=== PATIENT | male | born 1950 | race Caucasian/White ===

== ENCOUNTER 2018-03-25 10:15 | Outpatient (RCR) | payer MEDICARE, OTHER, SELFPAY ==
--- NOTE | 2018-03-11 16:21 | PT.OTN ---
Addendum entered and electronically signed by Yenni Horne, PT 03/11/18 17:46: Transition note: On March 08, 2018 our therapy services consisting of Speech, Occupational, and Physical Therapy transitioned from the [employer] electronic documentation system to a new [employer] electronic documentation system.?? All documentation prior to March 08 can be found under [employer] saved data. From March 08 forward all medical record documentation will be in [employer]. Original Note: Current Diagnoses Difficulty in walking, not elsewhere classified (03/11/18) Weakness (03/11/18) Multiple fractures of ribs, left side, subsequent encounter for fracture with routine healing (03/11/18) Minimally displaced Zone II fracture of sacrum, subsequent encounter for fracture with routine healing (03/11/18) Multiple fractures of pelvis with stable disruption of pelvic ring, subsequent encounter for fracture with routine healing (03/11/18) Physical Therapy Treatment Note PT-OP-A Visit Information Start: 03/11/18 15:57 Freq: Status: Active Protocol: Activity Type Activity Date Activity User E-Sign Co-Sign Detail Recorded Client Recorded Date Recorded By Document 03/11/18 16:04 [facility] [email or web address] 03/11/18 16:21 [facility] 03/11/18 16:04 Out-Patient Physical Therapy Visit Information [Visit Information] -Visit Type Treatment Note -Visit Start Time 11:45 -Visit Stop Time 12:30 -Total Visit Minutes 45 -Visit Number 6/10 -Number of DRILL PRESS OPERATOR Visits 2 PT-OP-C Subjective Start: 03/11/18 16:03 Freq: Status: Active Protocol: Activity Type Activity Date Activity User E-Sign Co-Sign Detail Recorded Client Recorded Date Recorded By Document 03/11/18 16:04 [facility] [email or web address] 03/11/18 16:21 [facility] 03/11/18 16:04 OP-PT Subjective [Patient Comments] -Patient Comments Pt. reports he' s walking around the house without assisitive device, using a cane outdoors, using a FWW when comes to pool. -Patient Reported Progress Improving PT-OP-S Aquatic Treatment Start: 03/11/18 16:01 Freq: Status: Active Protocol: Activity Type Activity Date Activity User E-Sign Co-Sign Detail Recorded Client Recorded Date Recorded By Document 03/11/18 16:04 TMS [email or web address] 03/11/18 16:21 TMS 03/11/18 16:04 Aquatics Treatment [Pool Entry/Exit] -Pool Entry/Exit Method Stairs -Assistance Independent [Water Walking] Forwards -Water Level Waist Level -Walking Equipment Resistance Fins -Level of Assistance Independent [Lower Extremity Exercises] 6 -Details Step ups from various level steps; 4 inch, 6 inch, 8 inch -Body Position Standing -Water Level Waist Level -Equipment Resistance Fins 5 -Details Heel/toe -Body Position Standing -Water Level Waist Level -Equipment Resistance Fins -Reps/Duration 15 4 -Details Squats -Body Position Standing -Water Level Waist Level -Equipment Resistance Fins -Reps/Duration 15 3 -Details L.E. circles -Body Position Standing -Water Level Waist Level -Equipment Resistance Fins -Reps/Duration 15 2 -Details Hip Abduction -Body Position Standing -Water Level Waist Level -Equipment Resistance Fins -Reps/Duration 15 1 -Details Hip flexion/ extension -Body Position Standing -Water Level Waist Level -Equipment Resistance Fins -Reps/Duration 15 [Lower Extremity Stretches] 1 -Details Hamstring/IT/AB -Body Position Standing -Water Level Waist Level -Equipment Small Noodle -Reps/Duration x2, 30 seconds [[place] Activities] -[place] Activities Bicycle Cross Country Hip Abduction/ Adduction Sit Kicks -Equipment Belt -Duration 4 sets of each, 30;30 -Comments Tethered PT-OP-T Assessment and Plan Start: 03/11/18 16:01 Freq: Status: Active Protocol: Activity Type Activity Date Activity User E-Sign Co-Sign Detail Recorded Client Recorded Date Recorded By Document 03/11/18 16:04 [facility] [email or web address] 03/11/18 16:21 [facility] 03/11/18 16:04 Physical Therapy Assessment [Assessment Summary] -Assessment Pt. needed cues to keep motion small with hip AB/AD to keep it tolerable. Tolerating increased weight bearing well without increased pain. Physical Therapy Plan [Frequency and Duration] -Frequency of Treatment 2x/Week -Duration of Treatment 3 months from -Plan of Care Start Date 01/17/18 -Plan of Care End Date 04/16/18
--- NOTE | 2018-03-14 16:59 | PT.OTN ---
Current Diagnoses Difficulty in walking, not elsewhere classified (03/14/18) Weakness (03/14/18) Multiple fractures of ribs, left side, subsequent encounter for fracture with routine healing (03/14/18) Minimally displaced Zone II fracture of sacrum, subsequent encounter for fracture with routine healing (03/14/18) Multiple fractures of pelvis with stable disruption of pelvic ring, subsequent encounter for fracture with routine healing (03/14/18) Physical Therapy Treatment Note PT-OP-A Visit Information Start: 03/11/18 15:57 Freq: Status: Active Protocol: Activity Type Activity Date Activity User E-Sign Co-Sign Detail Recorded Client Recorded Date Recorded By Document 03/14/18 16:[address] [facility] [id number] 03/14/18 16:[address] [facility] 03/14/18 16:47 Out-Patient Physical Therapy Visit Information [Visit Information] -Visit Type Treatment Note -Visit Start Time 11:45 -Visit Stop Time 12:30 -Total Visit Minutes 45 -Visit Number 7/10 -Number of DIE ENGRAVER Visits 0 PT-OP-C Subjective Start: 03/11/18 16:03 Freq: Status: Active Protocol: Activity Type Activity Date Activity User E-Sign Co-Sign Detail Recorded Client Recorded Date Recorded By Document 03/14/18 16:[address] [facility] [id number] 03/14/18 16:[address] [facility] 03/14/18 16:47 OP-PT Subjective [Patient Comments] -Patient Comments States he feels like he is pretty much 100 % weight- bearing though moving carefully. Using cane only . Minimal uneven ground ambulation so far. States he feels after finished with aquatic therapy will continue land-based exercises independently including riding his recumbant bike. Worst pain bilateral ischial tuberosities; ache. -Patient Reported Progress Improving PT-OP-S Aquatic Treatment Start: 03/11/18 16:01 Freq: Status: Active Protocol: Activity Type Activity Date Activity User E-Sign Co-Sign Detail Recorded Client Recorded Date Recorded By Document 03/14/18 16:[address] [facility] [id number] 03/14/18 16:[address] [facility] 03/14/18 16:47 Aquatics Treatment [Pool Entry/Exit] -Pool Entry/Exit Method Stairs -Assistance Independent [Lower Extremity Exercises] 6 -Details Step ups from various level steps; 4 inch, 6 inch, 8 inch -Body Position Standing -Water Level Waist Level -Equipment Resistance Fins 3 -Details L.E. circumduction -Body Position Standing -Water Level Waist Level -Equipment Resistance Fins -Reps/Duration 15 1 -Details Hip flexion/ extension -Body Position Standing -Water Level Waist Level -Equipment Resistance Fins -Reps/Duration 15 [Lower Extremity Stretches] 1 -Details Hamstring/IT/AB -Body Position Standing -Water Level Waist Level -Equipment Small Noodle -Reps/Duration x2, 30 seconds [Upper Extremity Exercises] 1 -Details volleyball with plastic ball for dynamic activity, weight-shifts -Body Position Standing -Reps/Duration 5' [Spinal Exercises] 1 -Details plank -Body Position Supine -Water Level Chest Level -Equipment long barbell -Reps/Duration 10x [Swim Strokes] Flutter -Other Equipment Used kickboard, large flotation mat -Laps/Duration 4' PT-OP-T Assessment and Plan Start: 03/11/18 16:01 Freq: Status: Active Protocol: Activity Type Activity Date Activity User E-Sign Co-Sign Detail Recorded Client Recorded Date Recorded By Document 03/14/18 16:[address] [facility] [id number] 03/14/18 16:[address] [facility] 03/14/18 16:47 Physical Therapy Assessment [Assessment Summary] -Assessment Patient has difficulty achieving propulsion prone with kickboard (uses flotation belt as well); will try fins next session. Tolerated progression of activity well today. 100% weight-bearing on land. Physical Therapy Plan [Next Visit Focus/Plan] -Next Visit Plan Continue to progress aquatic exercises, add fins to gentle flutter, try supine flutter.
--- NOTE | 2018-03-18 16:28 | PT.OTN ---
Current Diagnoses Difficulty in walking, not elsewhere classified (03/18/18) Weakness (03/18/18) Multiple fractures of ribs, left side, subsequent encounter for fracture with routine healing (03/18/18) Minimally displaced Zone II fracture of sacrum, subsequent encounter for fracture with routine healing (03/18/18) Multiple fractures of pelvis with stable disruption of pelvic ring, subsequent encounter for fracture with routine healing (03/18/18) Physical Therapy Treatment Note PT-OP-A Visit Information Start: 03/11/18 15:57 Freq: Status: Active Protocol: Document 03/18/18 16:18 TMS (Rec: 03/18/18 16:28 TMS [email or web address]) Out-Patient Physical Therapy Visit Information Visit Information Visit Type Treatment Note Visit Start Time 11:45 Visit Stop Time 12:30 Total Visit Minutes 45 Visit Number 8/ Number of BOILER CONTROL TECHNICIAN Visits 1 PT-OP-C Subjective Start: 03/11/18 16:03 Freq: Status: Active Protocol: Document 03/18/18 16:18 TMS (Rec: 03/18/18 16:28 TMS [email or web address]) OP-PT Subjective Patient Comments Patient Comments Pt. states he started soaking in a hot tub in the evenings, feels more flexible in the mornings now. PT-OP-S Aquatic Treatment Start: 03/11/18 16:01 Freq: Status: Active Protocol: Document 03/18/18 16:18 TMS (Rec: 03/18/18 16:28 TMS [email or web address]) Aquatics Treatment Pool Entry/Exit Pool Entry/Exit Method Stairs Assistance Independent Water Walking Forwards Water Level Waist Level Walking Equipment Resistance Fins Level of Assistance Verbal Cues Lower Extremity Exercises 6 Details Step ups from various level steps; 4 inch, 6 inch, 8 inch Body Position Standing Water Level Waist Level Equipment Resistance Fins Comments Laterally also 5 Details Heel/toe Body Position Standing Water Level Waist Level Equipment Resistance Fins Reps/Duration x15 reps 4 Details Squats Body Position Standing Water Level Waist Level Equipment Resistance Fins Reps/Duration 15 reps 3 Details L.E. circumduction Body Position Standing Water Level Waist Level Equipment Resistance Fins Reps/Duration x15 2 Details Hip Abduction Body Position Standing Water Level Waist Level Equipment Resistance Fins Reps/Duration x15 1 Details Hip flexion/extension Body Position Standing Water Level Waist Level Equipment Resistance Fins Reps/Duration x15 Lower Extremity Stretches 1 Details Hamstring/IT/AB Body Position Standing Water Level Waist Level Equipment Small Noodle Reps/Duration x2, 30 seconds Upper Extremity Exercises 1 Details volleyball with plastic ball for dynamic activity, weight- shifts Body Position Standing Reps/Duration 5' Bang[place] Activities Bang[place] Activities Bicycle Cross Country Hip Abduction/Adduction Sit Kicks Equipment Belt Duration 4 sets of each, 30;30 Comments Tethered PT-OP-T Assessment and Plan Start: 03/11/18 16:01 Freq: Status: Active Protocol: Document 03/18/18 16:18 TMS (Rec: 03/18/18 16:28 [facility] [email or web address]) Physical Therapy Assessment Assessment Summary Assessment Beach ball hitting challenging with pt. feeling like he needed to concentrate on core more. Tolerating increased weight bearing well, states he does get ishial tuberosity pain when over does it. Physical Therapy Plan Frequency and Duration Frequency of Treatment 2x/Week Duration of Treatment 3 months from 01/17/18 Plan of Care Start Date 01/17/18 Plan of Care End Date 04/16/18 Next Visit Focus/Plan Next Visit Plan Continue to progress aquatic exercises, add fins to gentle flutter, try supine flutter.
--- NOTE | 2018-03-21 15:26 | PT.OTN ---
Current Diagnoses Difficulty in walking, not elsewhere classified (03/18/18) Weakness (03/18/18) Multiple fractures of ribs, left side, subsequent encounter for fracture with routine healing (03/18/18) Minimally displaced Zone II fracture of sacrum, subsequent encounter for fracture with routine healing (03/18/18) Multiple fractures of pelvis with stable disruption of pelvic ring, subsequent encounter for fracture with routine healing (03/18/18) Physical Therapy Treatment Note PT-OP-A Visit Information Start: 03/11/18 15:57 Freq: Status: Active Protocol: Document 03/21/18 15:13 TMS (Rec: 03/21/18 15:26 TMS [email or web address]) Out-Patient Physical Therapy Visit Information Visit Information Visit Type Treatment Note Visit Start Time 11:05 Visit Stop Time 11:55 Total Visit Minutes 50 Visit Number 9/ Number of ELECTRIC CRANE OPERATOR Visits 2 PT-OP-C Subjective Start: 03/11/18 16:03 Freq: Status: Active Protocol: Document 03/21/18 15:13 TMS (Rec: 03/21/18 15:26 TMS [email or web address]) OP-PT Subjective Patient Comments Patient Comments No new complaints. OP-PT Pain Assessment Pain Assessment Grid Paper Pain Assessment Grid Completed No Comments Pain Comments Pain rated at 1-2/10 in SI joints. PT-OP-S Aquatic Treatment Start: 03/11/18 16:01 Freq: Status: Active Protocol: Document 03/21/18 15:13 TMS (Rec: 03/21/18 15:26 TMS [email or web address]) Aquatics Treatment Pool Entry/Exit Pool Entry/Exit Method Stairs Assistance Independent Water Walking Forwards Water Level Waist Level Lower Extremity Exercises 6 Details Step ups from various level steps; 4 inch, 6 inch, 8 inch Body Position Standing Water Level Waist Level Comments Backwards, also jumping up 10 inch box (with body submerged) . Lower Extremity Stretches 1 Details Hamstring/IT/AB Body Position Standing Water Level Waist Level Equipment Small Noodle Reps/Duration x2, 30 seconds Balance 1 Body Position Standing Water Level Waist Level Pl[place] Activities Pl[place] Activities Bicycle Cross Country Hip Abduction/Adduction Sit Kicks Equipment Belt Duration 4 sets of each, 30;30 Comments Tethered Swim Strokes Flutter Equipment Fins Other Equipment Used kickboard Laps/Duration 10 minutes Comments Supine and prone PT-OP-T Assessment and Plan Start: 03/11/18 16:01 Freq: Status: Active Protocol: Document 03/21/18 15:13 TMS (Rec: 03/21/18 15:26 TMS [email or web address]) Physical Therapy Assessment Assessment Summary Assessment Pt. tolerated deep water AB/AD as long as he maintained a slower pace. Tolerated fluttering with fins well. Physical Therapy Plan Frequency and Duration Frequency of Treatment 2x/Week Duration of Treatment 3 months from 01/17/18 Plan of Care Start Date 01/17/18 Plan of Care End Date 04/16/18 Next Visit Focus/Plan Next Visit Plan Continue with plan of care.
--- NOTE | 2018-03-29 13:20 | PT.OTN ---
Current Diagnoses Difficulty in walking, not elsewhere classified (03/25/18) Weakness (03/25/18) Multiple fractures of ribs, left side, subsequent encounter for fracture with routine healing (03/25/18) Minimally displaced Zone II fracture of sacrum, subsequent encounter for fracture with routine healing (03/25/18) Multiple fractures of pelvis with stable disruption of pelvic ring, subsequent encounter for fracture with routine healing (03/25/18) Physical Therapy Treatment Note PT-OP-A Visit Information Start: 03/11/18 15:57 Freq: Status: Active Protocol: Document 03/25/18 11:00 SAK (Rec: 03/29/18 13:20 [facility] [id number]) Out-Patient Physical Therapy Visit Information Visit Information Visit Type Treatment Note Visit Start Time 11:00 Visit Stop Time 11:45 Total Visit Minutes 45 Visit Number 08/17 Number of DRY CHARGE PROCESS ATTENDANT Visits 2 PT-OP-C Subjective Start: 03/11/18 16:03 Freq: Status: Active Protocol: Document 03/25/18 11:00 SAK (Rec: 03/29/18 13:20 [facility] [id number]) OP-PT Subjective Patient Comments Patient Comments pain in ischial tuberosity region persists evelyn 1-2/10, occasionally 3/10 after walking. Full weight-bearing now, no device indoors, cane outdoors Patient Reported Progress Improving PT-OP-S Aquatic Treatment Start: 03/11/18 16:01 Freq: Status: Active Protocol: Document 03/25/18 11:00 SAK (Rec: 03/29/18 13:20 [facility] [id number]) Aquatics Treatment Pool Entry/Exit Pool Entry/Exit Method Stairs Assistance Independent Water Walking Forwards Water Level Waist Level Walking Equipment Resistance Fins Level of Assistance Verbal Cues Lower Extremity Exercises 3 Details L.E. circumduction Body Position Standing Water Level Waist Level Equipment Resistance Fins Reps/Duration x15 Lower Extremity Stretches 2 Details piriformis Body Position squat Water Level Chest Level Equipment wall Reps/Duration 2 1 Details Hamstring/IT/AB Body Position Standing Water Level Waist Level Equipment Small Noodle Reps/Duration x2, 30 seconds [place] Activities [place] Activities Bicycle Cross [place] Hip Abduction/Adduction Sit Kicks Equipment Belt Duration 4 sets of each, 30;30 Comments Tethered Swim Strokes Flutter Equipment Noodle Other Equipment Used kickboard Laps/Duration 10 minutes Comments Supine and prone PT-OP-T Assessment and Plan Start: 03/11/18 16:01 Freq: Status: Active Protocol: Document 03/25/18 11:00 JAYNE (Rec: 03/29/18 13:20 [facility] [id number]) Physical Therapy Assessment Goals Eight Impairment HEP Oil Dispatcher Goal (LTG) Independent with HEP LTG Duration 3 wks Seven Impairment LEFS Oil Dispatcher Goal (LTG) Improve LEFS score to 75% LTG Duration 3 wks Six Impairment strength Long-Term Goal (LTG) Improve LE strength to 5/5 Five Impairment Flexibility Long-Term Goal (LTG) LE flexibility WNL LTG Duration 2 wks Four Impairment soft tissue mobility Oil Dispatcher Goal (LTG) Improve scar mobility to WNL LTG Duration 3 wks Three Impairment Stair gait Long-Term Goal (LTG) Patien able to ascend and descend stairs with reciprocal pattern without limp LTG Duration 3 wks Two Impairment Gait Long-Term Goal (LTG) Patient able to ambaulate on level and uneven surfaces without device and without limp or compensatory patterns LTG Duration 3 wks One Impairment activity tolerance Oil Dispatcher Goal (LTG) Patient able to return to all prior activities with minimal to no symptoms LTG Duration 3 wks Progress Towards Goals Progress Towards Goals Progressing Toward Goals Progress Comments Overall good progress with some persistent pain ischial tuberosity region; piriformis stretch added today which appeared helpful. Patient remains highly motivated and is following directions to gradually resume usual activities. Assessment Summary Assessment Anticipating discharge from PT in approximately 2 wks, with patient continueing aquatic ex and HEP independently. Sees physician this week. Physical Therapy Plan Frequency and Duration Frequency of Treatment 2x/Week Duration of Treatment 3 months from 01/17/18 Plan of Care Start Date 01/17/18 Plan of Care End Date 04/16/18 Next Visit Focus/Plan Next Visit Plan Further progression of aquatic therapy exercises for strengthening, balance, flexibility, and ROM. Emphasis on piriformis stretching. Please Sign and Return: I have reviewed this Plan of Care and certify that the skilled therapy services above are required to meet the patient???s needs. Physician Signature Date Printed Name and Credentials Clinical Instructor Signature Printed Name and Credentials
--- NOTE | 2018-05-31 13:55 | PT.OPDS ---
Current Diagnoses Difficulty in walking, not elsewhere classified (03/25/18) Weakness (03/25/18) Multiple fractures of ribs, left side, subsequent encounter for fracture with routine healing (03/25/18) Minimally displaced Zone II fracture of sacrum, subsequent encounter for fracture with routine healing (03/25/18) Multiple fractures of pelvis with stable disruption of pelvic ring, subsequent encounter for fracture with routine healing (03/25/18) Provider Visit Care Team Role Provider Type Angelo Ramires MD Primary Care Provider Physician Specialty: Family Practice Address: [address] [place] [address], [facility] Email: [email or web address] Other Providers Specialty: Address: Phone: Fax: Email: Simba Hoang MD Attending Provider Non-Staff Specialty: Orthopedic Surgery Address: [address] [place] [address], [facility] Email: Visit Number Visit Number 08/17 Discharge Summary PT-OP-C Subjective Start: 03/11/18 16:03 Freq: Status: Active Protocol: Document 03/25/18 11:00 SAK (Rec: 03/29/18 13:20 [facility] [id number]) OP-PT Subjective Patient Comments Patient Comments pain in ischial tuberosity region persists evelyn 1-2/10, occasionally 3/10 after walking. Full weight-bearing now, no device indoors, cane outdoors Patient Reported Progress Improving PT-OP-T Assessment and Plan Start: 03/11/18 16:01 Freq: Status: Active Protocol: Document 05/31/18 13:53 SAK (Rec: 05/31/18 13:55 [facility] [id number]) Physical Therapy Assessment Assessment Summary Assessment After recent physician appointment patient called to request discharge from PT, feels comfortable with current HEP, aquatic exercise program , and progression of activity. Plans to continue on his own . Physical Therapy Plan Discharge Physical Therapy Discharge Reasons No Longer Attending PT Discharge Comments Should continue to improve with compliance to home program
== END 2018-06-23 11:19 ==
LOC: PHYS 10:15
PROVIDERS: PCP Family Medicine; Visit Provider Orthopaedic Surgery
DX: S32.12 Zone II fracture of sacrum (principal); S22.42XD Multiple fractures of ribs, left side, subsequent encounter for fracture with routine healing; S32.810D Multiple fractures of pelvis with stable disruption of pelvic ring, subsequent encounter for fracture with routine healing; R53.1 Weakness; R26.2 Difficulty in walking, not elsewhere classified
CPT/HCPCS: 97113

== ENCOUNTER → 2019-06-22 07:49 | Outpatient (CLI) | payer MEDICARE, OTHER, SELFPAY ==
[2019-06-22 08:16] LABS: Add Manual Diff / Slide Review NO; Basophils Absolute Auto 0 /uL (0-100); Basophils Percent Auto 0.8 % (0-2); Eosinophils Absolute Auto 200 /uL (0-450); Eosinophils Percent Auto 3.7 % (2-4); Hematocrit 40.3 % (41-53); Hemoglobin 13.6 g/dL (13.5-17.5); Lymphocytes Absolute Auto 1500 /uL (1100-4500); Mean Corpuscular HGB Conc 33.8 % (30-36); Mean Corpuscular Hemoglobin 31.5 PG (26-34); Mean Corpuscular Volume 93.3 fL (80-100); Monocytes Absolute Auto 600 /uL (0-900); Monocytes Percent Auto 10.9 % (3-14); Neutrophils Absolute Auto 3100 /uL (1500-7000); Neutrophils Percent Auto 57.6 % (50-75); Platelet Count 233 X10^3/uL (150-400); Red Blood Cell Count 4.32 X10^6/uL (4.5-5.9); Red Cell Distribution Width 13.4 % (11.6-14.8); White Blood Cell Count 5.5 X10^3/uL (4.5-11.0)
[2019-06-22 08:38] LABS: Alanine Aminotransferase 31 IU/L (21-72); Albumin 4.1 g/dL (3.5-5.0); Albumin Globulin Ratio 1.5 (1.0-2.8); Alkaline Phosphatase 49 U/L (38-126); Aspartate Aminotransferase 31 IU/L (17-59); BUN Creatinine Ratio 31.7 (6-22); Bilirubin Total 0.7 mg/dL (0.2-1.3); Blood Urea Nitrogen 19 mg/dL (9-20); Calcium 9.1 mg/dL (8.4-10.2); Carbon Dioxide 31 mmol/L (22-32); Chloride 102 mmol/L (98-107); Cholesterol 261 mg/dL (140-199); Estimated Glomerular Filt Rate > 60.0 mL/min (>60); Globulin 2.8 g/dL (1.7-4.1); Glucose 89 mg/dL (80-110); HDL Cholesterol 46 mg/dL (40-60); HEMOLYSIS < 15 (0-50); LDL Cholesterol Calculated 197 mg/dL (<100); Potassium 3.9 mmol/L (3.4-5.1); Sodium 139 mmol/L (137-145); Total Protein 6.9 g/dL (6.3-8.2); Triglycerides 92 mg/dL (35-150)
[2019-06-22 09:20] LABS: TSH w/ Reflex to FT4 3.41 uIU/mL (0.47-4.68)
== END ==
PROVIDERS: PCP Family Medicine; Visit Provider Family Medicine
DX: E78.5 Hyperlipidemia, unspecified (principal); Z12.5 Encounter for screening for malignant neoplasm of prostate
CPT/HCPCS: 36415; 80053; 80061; 84443; 85025; G0103

== ENCOUNTER → 2020-02-16 09:13 | Outpatient (CLI) | payer MEDICARE, OTHER, SELFPAY ==
[2020-02-16 10:39] LABS: Add Manual Diff / Slide Review NO; Basophils Absolute Auto 0 /uL (0-100); Basophils Percent Auto 0.7 % (0-2); Eosinophils Absolute Auto 600 /uL (0-450); Eosinophils Percent Auto 10.5 % (2-4); Hematocrit 42.6 % (41-53); Hemoglobin 14.1 g/dL (13.5-17.5); Lymphocytes Absolute Auto 1600 /uL (1100-4500); Lymphocytes Percent Auto 29.5 % (25-40); Mean Corpuscular HGB Conc 33.1 % (30-36); Mean Corpuscular Hemoglobin 31.1 PG (26-34); Monocytes Absolute Auto 600 /uL (0-900); Neutrophils Absolute Auto 2500 /uL (1500-7000); Neutrophils Percent Auto 48.3 % (50-75); Platelet Count 274 X10^3/uL (150-400); Red Blood Cell Count 4.53 X10^6/uL (4.5-5.9); Red Cell Distribution Width 13.4 % (11.6-14.8); White Blood Cell Count 5.3 X10^3/uL (4.5-11.0)
[2020-02-16 11:45] LABS: Alanine Aminotransferase 28 IU/L (<50); Albumin 4.2 g/dL (3.5-5.0); Albumin Globulin Ratio 1.4 (1.0-2.8); Alkaline Phosphatase 55 U/L (38-126); Aspartate Aminotransferase 37 IU/L (17-59); BUN Creatinine Ratio 23.5 (6-22); Bilirubin Total 0.7 mg/dL (0.2-1.3); Blood Urea Nitrogen 16 mg/dL (9-20); Calcium 9.4 mg/dL (8.4-10.2); Carbon Dioxide 29 mmol/L (22-32); Chloride 103 mmol/L (98-107); Estimated Glomerular Filt Rate > 60.0 mL/min (>60); Globulin 3.1 g/dL (1.7-4.1); Glucose 83 mg/dL (80-110); HEMOLYSIS < 15 (0-50); Potassium 4.3 mmol/L (3.4-5.1); Sodium 138 mmol/L (137-145); Total Protein 7.3 g/dL (6.3-8.2)
== END ==
PROVIDERS: PCP Family Medicine; Referring Provider Family Medicine; Visit Provider Family Medicine
DX: R21 Rash and other nonspecific skin eruption (principal)
CPT/HCPCS: 36415; 80053; 85025

== ENCOUNTER → 2020-02-20 12:16 | Outpatient (CLI) | payer MEDICARE, OTHER, SELFPAY ==
[2020-02-24 01:36] LABS: H pylori Breath Test Negative (Negative)
== END ==
PROVIDERS: PCP Family Medicine; Referring Provider Family Medicine; Visit Provider Family Medicine
DX: R21 Rash and other nonspecific skin eruption (principal); Z86.19 Personal history of other infectious and parasitic diseases; K31.89 Other diseases of stomach and duodenum
CPT/HCPCS: 83013

== ENCOUNTER → 2020-11-05 17:11 | Outpatient (CLI) | payer MEDICARE, OTHER, SELFPAY ==
[2020-11-05 17:58] LABS: Alanine Aminotransferase 33 IU/L (<50); Albumin 4.4 g/dL (3.5-5.0); Albumin Globulin Ratio 1.6 (1.0-2.8); Alkaline Phosphatase 53 U/L (38-126); Aspartate Aminotransferase 34 IU/L (17-59); BUN Creatinine Ratio 26.7 (6-22); Bilirubin Total 0.3 mg/dL (0.2-1.3); Blood Urea Nitrogen 20 mg/dL (9-20); Calcium 9.6 mg/dL (8.4-10.2); Carbon Dioxide 31 mmol/L (22-32); Chloride 101 mmol/L (98-107); Estimated Glomerular Filt Rate > 60.0 mL/min (>60); Globulin 2.8 g/dL (1.7-4.1); Glucose 159 mg/dL (80-110); HEMOLYSIS < 15 (0-50); Potassium 4.2 mmol/L (3.4-5.1); Sodium 136 mmol/L (137-145); Total Protein 7.2 g/dL (6.3-8.2)
[2020-11-05 18:00] LABS: C-Reactive Protein Quant < 0.5 mg/dL (<1.0)
[2020-11-05 18:18] LABS: Erythrocyte Sedimentation Rate 5 MM/HR (0-15)
[2020-11-05 18:19] LABS: Hematocrit 39.5 % (41-53); Hemoglobin 13.1 g/dL (13.5-17.5); Mean Corpuscular HGB Conc 33.2 % (30-36); Mean Corpuscular Hemoglobin 31.1 PG (26-34); Mean Corpuscular Volume 93.8 fL (80-100); Platelet Count 265 X10^3/uL (150-400); Red Blood Cell Count 4.21 X10^6/uL (4.5-5.9); Red Cell Distribution Width 13.3 % (11.6-14.8); White Blood Cell Count 10.2 X10^3/uL (4.5-11.0)
[2020-11-05 18:22] LABS: Neutrophils Absolute Manual 8772 /uL (3000-5900); Total Cells Counted 100
[2020-11-05 18:23] LABS: RBC Morphology Normal Morphology
[2020-11-05 18:39] LABS: Thyroid Stimulating Hormone 1.51 uIU/mL (0.47-4.68)
== END ==
PROVIDERS: PCP Family Medicine; Referring Provider Family Medicine; Visit Provider Family Medicine
DX: H91.90 Unspecified hearing loss, unspecified ear (principal); E78.5 Hyperlipidemia, unspecified; D64.9 Anemia, unspecified
CPT/HCPCS: 36415; 80053; 84443; 85025; 85651; 86140

== ENCOUNTER → 2020-12-09 09:11 | Outpatient (CLI) | payer MEDICARE, OTHER, SELFPAY ==
[2020-12-09 10:06] LABS: Blood Urea Nitrogen 15 mg/dL (9-20); Estimated Glomerular Filt Rate > 60.0 mL/min (>60)
== END ==
PROVIDERS: PCP Family Medicine; Referring Provider Family Medicine; Visit Provider Otolaryngology
DX: H90.5 Unspecified sensorineural hearing loss (principal)
CPT/HCPCS: 36415; 82565; 84520

== ENCOUNTER → 2020-12-13 08:58 | Outpatient (CLI) | payer MEDICARE, OTHER, SELFPAY ==
--- NOTE | 2020-12-13 | DI.MRI.S_ITS ---
PROCEDURE: MR BRAIN (IAC) WWO CON INDICATIONS: Unspecified sensorineural hearing loss TECHNIQUE: Noncontrast sagittal T1 spin echo, axial FLAIR, axial gradient echo, axial diffusion and ADC through the brain. Axial thin-slice 3D CISS, coronal TruFISP, axial T1 spin echo with fat saturation through the internal auditory canals. After the administration of contrast, thin slice axial and coronal T1 spin echo with fat saturation through the internal auditory canals, and axial T1 spin echo with fat saturation through the brain. COMPARISON: [facility], RG, MRI BRAIN (IAC) WITH CONTRAST, 11/04/2005, 17:08. [facility], CT, HEAD WITHOUT CONTRAST, 10/31/2017, 13:31. FINDINGS: Image quality: Excellent. Cerebellopontine angles: No cerebellopontine angle masses. Inner ear structures appear normally formed. No suspicious enhancement in the internal auditory canal or along the course of the 7th cranial nerve. CSF spaces: Ventricles are normal in size and shape. No extra-axial fluid collections. Basal cisterns are patent. Brain: No intracranial bleeds or mass effects. Mild diffuse cerebral volume loss. Mild degree of patchy high FLAIR signal within the periventricular and subcortical white matter. Pope-white matter interface is intact. No abnormal intracranial enhancement. Diffusion weighted images demonstrate no acute ischemic insults. Brainstem appears normal. Normal intravascular flow voids are present. Skull and face: Calvarial marrow signal is normal. Orbits appear normal. Sinuses: Sinuses and mastoids are clear. IMPRESSION: 1. Negative evaluation of the internal auditory canals. No explanation for hearing loss. 2. Mild volume loss and small vessel ischemic disease. 3. No acute process. No recent infarct. Dictated by: Salomón Lam M.D. on 12/13/2020 at 9:52 Approved by: Salomón Lam M.D. on 12/13/2020 at 9:55
== END ==
PROVIDERS: PCP Family Medicine; Referring Provider Otolaryngology; Visit Provider Otolaryngology
DX: H90.5 Unspecified sensorineural hearing loss (principal)
CPT/HCPCS: 70553

== ENCOUNTER → 2024-06-23 11:17 | Outpatient (CLI) | payer MEDICARE, OTHER, SELFPAY ==
[2024-06-23 12:57] LABS: Prostate Specific Antigen 2.67 ng/mL (0.10-4.00)
== END ==
PROVIDERS: Urology; PCP Family Medicine; Referring Provider Specialist; Visit Provider Specialist
DX: R97.20 Elevated prostate specific antigen [PSA] (principal)
CPT/HCPCS: 36415; 84153

== ENCOUNTER → 2024-08-05 07:58 | Outpatient (CLI) | payer MEDICARE, OTHER, SELFPAY ==
[2024-08-05 08:53] LABS: Add Manual Diff / Slide Review NO; Basophils Absolute Auto 100 /uL (0-100); Basophils Percent Auto 1.2 % (0-2); Eosinophils Absolute Auto 300 /uL (0-450); Eosinophils Percent Auto 5.1 % (2-4); Hematocrit 42.1 % (41-53); Lymphocytes Absolute Auto 1600 /uL (1100-4500); Lymphocytes Percent Auto 24.4 % (25-40); Mean Corpuscular HGB Conc 33.3 % (30-36); Mean Corpuscular Hemoglobin 31.3 PG (26-34); Mean Corpuscular Volume 94.1 fL (80-100); Monocytes Absolute Auto 800 /uL (0-900); Monocytes Percent Auto 11.7 % (3-14); Neutrophils Absolute Auto 3800 /uL (1500-7000); Neutrophils Percent Auto 57.6 % (50-75); Platelet Count 256 X10^3/uL (150-400); Red Blood Cell Count 4.48 X10^6/uL (4.5-5.9); Red Cell Distribution Width 13.6 % (11.6-14.8); White Blood Cell Count 6.6 X10^3/uL (4.5-11.0)
[2024-08-05 09:13] LABS: Alanine Aminotransferase 37 IU/L (<50); Albumin 4.1 g/dL (3.5-5.0); Albumin Globulin Ratio 1.5 (1.0-2.8); Alkaline Phosphatase 65 U/L (38-126); Aspartate Aminotransferase 45 IU/L (17-59); BUN Creatinine Ratio 23.3 (6-22); Bilirubin Total 0.8 mg/dL (0.2-1.3); Blood Urea Nitrogen 17 mg/dL (9-20); Calcium 9.4 mg/dL (8.4-10.2); Carbon Dioxide 28 mmol/L (22-32); Chloride 105 mmol/L (98-107); Cholesterol 284 mg/dL (140-199); Estimated Glomerular Filt Rate > 60 mL/min (>60); Globulin 2.8 g/dL (1.7-4.1); Glucose 89 mg/dL (80-110); HDL Cholesterol 52 mg/dL (40-60); HEMOLYSIS < 15 (0-50); LDL Cholesterol Calculated 210 mg/dL (<100); Potassium 4.7 mmol/L (3.4-5.1); Sodium 137 mmol/L (137-145); Total Protein 6.9 g/dL (6.3-8.2); Triglycerides 111 mg/dL (35-150)
[2024-08-05 09:41] LABS: Prostate Specific Antigen Scrn 2.57 ng/mL (0.1-4.0); TSH w/ Reflex to FT4 3.38 uIU/mL (0.47-4.68)
== END ==
PROVIDERS: PCP Family Medicine; Referring Provider Family Medicine; Visit Provider Family Medicine
DX: N52.9 Male erectile dysfunction, unspecified (principal); Z12.5 Encounter for screening for malignant neoplasm of prostate; E78.5 Hyperlipidemia, unspecified; L11.1 Transient acantholytic dermatosis [Grover]
CPT/HCPCS: 36415; 80053; 80061; 84443; 85025; G0103